=== PATIENT | male | born 1965 | race Two or more races ===

== ENCOUNTER 2017-11-03 06:36 | Inpatient (IN) | payer MEDICARE, MEDICAID ==
[~2017-11-03] VITALS: Ht 172.7 cm; Wt 77.1 kg
--- NOTE | 2017-11-03 08:30 | NUR ---
MS/retrimmer New admission from [place] with diagnose of shortness of breath / pleural effusion. Patient fully admitted, awaiting orders. All needs attended, call light within reach, brakes locked, side rails X3 in upright position.
[2017-11-03] MEDS ORDERED: LISI-603 PO (08:31)
[2017-11-03] MEDS ORDERED: CALC667C6 PO (08:31)
[2017-11-03] MEDS ORDERED: HYDR50TA3 PO (08:31)
[2017-11-03] MEDS ORDERED: MINO10TA2 PO (08:31)
[2017-11-03] MEDS ORDERED: AMLO10TA2 PO (08:31)
[2017-11-03] MEDS ORDERED: ASPI-1152 PO (08:31)
[2017-11-03] MEDS ORDERED: FOLI1TAB16 PO (08:31)
[2017-11-03] MEDS ORDERED: LANT1000 PO (08:31)
[2017-11-03] MEDS ORDERED: IV NS 0.9% 1,000 ML IV PRN (08:44)
[2017-11-03] MEDS ORDERED: MAG HYDROX/AL HYDROX/SIMETH 30 ML UDC PO PRN (09:00)
[2017-11-03] MEDS ORDERED: HYDROCODONE/APAP 5/325MG 1 EACH TABLET PO PRN (09:00)
[2017-11-03] MEDS ORDERED: ONDANSETRON HCL/PF 4 MG/2 ML VIAL IVP PRN (09:00)
[2017-11-03] MEDS ORDERED: ACETAMINOPHEN 325 MG TABLET PO PRN (09:00)
[2017-11-03] MEDS ORDERED: MAGNESIUM HYDROXIDE 30 ML UDC PO PRN (09:00)
[2017-11-03] MEDS ORDERED: ZOLPIDEM TARTRATE 5 MG TABLET PO PRN (09:00)
[2017-11-03] MEDS ORDERED: Z GUARD REMEDY 2 OZ OINT TP PRN (09:00)
--- NOTE | 2017-11-03 09:00 | NUR ---
MS/RN S/B Dr Sheth Seen by Dr Sheth - admitting orders wrote and carried out.
[2017-11-03] MEDS ORDERED: AZITHROMYCIN 500 MG in IV D5W 250 ML IV SCH (09:30)
[2017-11-03 10:14] LABS: BASOPHILS % (AUTO) 0.6 % (0.0-2.0); EOSINOPHILS # (AUTO) 0.1 /CMM (0.0-0.7); EOSINOPHILS % (AUTO) 1.5 % (0.0-6.0); HEMATOCRIT 32 % (39-51); HEMOGLOBIN 10.3 g/dL (13.5-17.5); LYMPHOCYTES # (AUTO) 0.6 /CMM (0.8-4.8); MEAN CORPUSCULAR HEMOGLOBIN 26 PG (26.0-33.0); MEAN CORPUSCULAR HGB CONC 32 g/dl (31.0-36.0); MEAN CORPUSCULAR VOLUME 83 fL (80-96); MONOCYTES # (AUTO) 0.8 /CMM (0.1-1.30); MONOCYTES % (AUTO) 10.1 % (2.0-12.0); NEUTROPHILS # (AUTO) 6.3 /CMM (1.8-8.9); NEUTROPHILS % (AUTO) 79.8 % (43.0-81.0); PLATELET COUNT (AUTO) 438 /CMM (150-450); RDW COEFFICIENT OF VARIATION 15.8 (11.5-15.0); RED BLOOD CELL COUNT(AUTO) 3.88 MIL/uL (4.5-6.0); WHITE BLOOD COUNT (AUTO) 7.9 K/uL (4.3-11.0)
[2017-11-03] MEDS ORDERED: CEFTRIAXONE 1 G in IV D5W 50 ML IV SCH (10:30)
--- NOTE | 2017-11-03 10:30 | NUR ---
MS/RN S/B Dr Dill Seen by Dr Dill - HDX ordered for today and tomorrow. Diet changed to renal standard.
[2017-11-03 10:55] LABS: ALBUMIN 3.2 g/dL (3.4-5.0); BILIRUBIN,TOTAL 0.7 mg/dL (0.2-1.0); CALCIUM, SERUM 9.1 mg/dL (8.5-10.1); CREATININE 6.9 mg/dL (0.6-1.3); POTASSIUM 4.2 mmol/L (3.5-5.1); TOTAL PROTEIN, SERUM 8.1 g/dL (6.4-8.2)
[2017-11-03 12:00] VITALS: BP 127/72
--- NOTE | 2017-11-03 12:00 | NUR ---
MS/RN IVAB IVAB (zithromax and rocephin) administered as ordered. No adverse reaction noted.
--- NOTE | 2017-11-03 14:15 | NUR ---
MS/RN CT Chest Patient off floor at this time for CT scan of chest with contrast.
[2017-11-03] MEDS ORDERED: IV NS 0.9% 250 ML IV ONE (14:45)
[2017-11-03] MEDS ORDERED: IOHEXOL-300 100 ML VIAL IV ONE (14:45)
[2017-11-03 16:00] VITALS: BP 144/84
--- NOTE | 2017-11-03 16:00 | NUR ---
TELE/RN CT SCAN PATIENT BACK FROM CT WITH CONTACT OF CHEST. NO ASE NOTED. IN STABLE CONDITION. RESPIRATION REGULAR AND UNLABORED. DENIES SOB, PAIN AT THIS. WILL CONTINUE TO MONITOR.
--- NOTE | 2017-11-03 16:44 | NUR ---
MS/RN HDX HDX started at bedside, signed consent placed in front of chart.
--- NOTE | 2017-11-03 17:00 | NUR ---
TELE/RN GETTING DIALYSIS THE PATIENT GETTING DIALYSIS. NO ASE NOTED. IN STABLE CONDITION.
--- NOTE | 2017-11-03 17:15 | NUR ---
MS/RN Random vanco level Random vancomycin level ordered, if less than 20, dose to be administered post dialysis.
[2017-11-03] MEDS ORDERED: PIPERACILLIN /TAZOBACTAM 4.5 G in IV D5W 50 ML IV SCH (17:30)
[2017-11-03] MEDS ORDERED: VANCOMYCIN 1 GM in IV D5W 250 ML IV ONE ×4 (18:00)
[2017-11-03] MEDS ORDERED: FEE PK DOSING 1 MIN EA MC ONE (18:16)
--- NOTE | 2017-11-03 18:36 | NUR ---
TELE/RN CLOSING NOTE [place] A/O X3. RESPIRATION REGULAR AND UNLABORED. DENIES SOB, PAIN AT THIS TIME. IN NO APPARENT DISTRESS. POST DIALYSIS AND IS IN STABLE CONDITION. BED LOW AND LOCKED. SIDE RAIL X2 IN UPRIGHT POSITION. CALL LIGHT WITHIN REACH. WILL ENDORSE TO MOTOR BRAKEMAN.
--- NOTE | 2017-11-03 19:00 | NUR ---
RN NOTES IN BED RESTING COMFORTABLY. A/O X 3, PT IN STABLE CONDITION, NO S/S OF DISTRESS. SAFETY MEASURES ARE IN PLACE, CALL LIGHT IS IN REACH. WILL CONTINUE TO MONITOR.
--- NOTE | 2017-11-03 19:03 | NUR ---
MS/CHAIM Perez Awaiting [facility] level.
--- NOTE | 2017-11-03 19:23 | NUR ---
MS RN NOTES CHECKED VANCO LEVEL REPORTED TO THE PHARMACIST RECENT RANDOM VANCO TROUGH CONT TO ADMINISTER ORDERED 1800 MEDS VANCO
[2017-11-03 20:00] VITALS: BP 142/77
[2017-11-03] MEDS: PIPERACILLIN /TAZOBACTAM 2.25 G in IV D5W 50 ML IV SCH (21:19)
[2017-11-04] VITALS: BP 116/59
[2017-11-04 04:00] VITALS: BP 134/75
[2017-11-04] MEDS: PIPERACILLIN /TAZOBACTAM 2.25 G in IV D5W 50 ML IV SCH ×3 (04:38→21:23)
--- NOTE | 2017-11-04 06:24 | NUR ---
FAST FOOD DELIVERY DRIVER CLOSING NOTES PT IN BED ASLEEP AND EASILY AWAKEN, HOB ELEVATED RESPIRATIONS EVEN AND UNLABORED. ON 2LPM VIA NC 02 SAT 98% NOT IN S/S DISTRESS. KEPT CLEAN AND DRY AND COMFORTABLE, ALL NURSING CARE RENDERED. NEEDS ATTENDED AND ANTICIPATED, FREQUENT VISUAL CHECK DONE FOR SAFETY EVERY 2 HOURS. ON LOW BED AT ALL TIMES TO ENSURE SAFETY. SAFE HAZARD FREE ENVIRONMENT PROVIDED. CALL LIGHT WITHIN EASY TO REACH. WILL ENDORSE NEXT SHIFT CONTINUITY OF CARE. ATTACH TO TELE MONITOR. SR, 71'S
--- NOTE | 2017-11-04 07:10 | NUR ---
SPEEDBOAT DRIVER NOTES PATIENT ALERT AND ORIENTED X4, BREATHING EVEN AND UNLABORED, NO DISTRESS NOTED, DENIES PAIN OR DISCOMFORT AT THIS TIME, DISCUSSED PLAN OF CARE FOR TODAY, PATIENT VERBALIZED UNDERSTANDING. NEEDS ATTENDED AND MET, CALL LIGHT WITHIN REACH, WILL CONTINUE TO MONITOR.
[2017-11-04 07:29] LABS: BASOPHILS % (AUTO) 0.4 % (0.0-2.0); EOSINOPHILS # (AUTO) 0.2 /CMM (0.0-0.7); HEMATOCRIT 28 % (39-51); HEMOGLOBIN 9.3 g/dL (13.5-17.5); LYMPHOCYTES # (AUTO) 0.8 /CMM (0.8-4.8); LYMPHOCYTES % (AUTO) 9.9 % (20.0-44.0); MEAN CORPUSCULAR HEMOGLOBIN 27 PG (26.0-33.0); MEAN CORPUSCULAR HGB CONC 33 g/dl (31.0-36.0); MEAN CORPUSCULAR VOLUME 82 fL (80-96); MONOCYTES # (AUTO) 0.8 /CMM (0.1-1.30); MONOCYTES % (AUTO) 9.6 % (2.0-12.0); NEUTROPHILS # (AUTO) 6.4 /CMM (1.8-8.9); NEUTROPHILS % (AUTO) 77.1 % (43.0-81.0); PLATELET COUNT (AUTO) 364 /CMM (150-450); RDW COEFFICIENT OF VARIATION 16.8 (11.5-15.0); RED BLOOD CELL COUNT(AUTO) 3.44 MIL/uL (4.5-6.0); WHITE BLOOD COUNT (AUTO) 8.3 K/uL (4.3-11.0)
[2017-11-04 07:41] LABS: CALCIUM, SERUM 8.7 mg/dL (8.5-10.1); CREATININE 6.1 mg/dL (0.6-1.3); MAGNESIUM 2.5 mg/dL (1.8-2.4); POTASSIUM 4.5 mmol/L (3.5-5.1)
[2017-11-04 08:00] VITALS: BP 135/72
[2017-11-04] MEDS ORDERED: MINOXIDIL (10MG) 10 MG TABLET PO SCH (09:00)
[2017-11-04] MEDS ORDERED: HYDROCHLOROTHIAZIDE 25 MG TABLET PO SCH (09:00)
[2017-11-04] MEDS: ASPIRIN EC 81 MG TABLET.DR PO SCH (09:21)
[2017-11-04] MEDS: CALCIUM ACETATE 667 MG TABLET PO SCH ×3 (09:21→17:09)
[2017-11-04] MEDS: FOLIC ACID 1 MG TABLET PO SCH (09:21)
[2017-11-04] MEDS: AMLODIPINE BESYLATE 10 MG TABLET PO SCH (09:22)
[2017-11-04] MEDS: LISINOPRIL (20MG) 20 MG TABLET PO SCH ×2 (09:24→21:23)
[2017-11-04] MEDS ORDERED: MINOXIDIL (2.5MG) 2.5 MG TABLET PO SCH (09:30)
--- NOTE | 2017-11-04 09:30 | NUR ---
DIGITAL MARKETER NOTES PATIENT STATED HE TAKES HYDROCHLOROTHIAZIDE AND MINOXIDIL AT HS, ORDER CHANGED TO HS. MADE AWARE.
[2017-11-04] MEDS: LANTHANUM CARBONATE 1,000 MG TAB.CHEW PO SCH ×3 (10:09→17:09)
--- NOTE | 2017-11-04 14:00 | NUR ---
FUR JOINER NOTES HEMODIALYSIS TREATMENT STARTED.
[2017-11-04] MEDS ORDERED: VANCOMYCIN 1 GM in IV D5W 250 ML IV ONE (14:30)
[2017-11-04] MEDS ORDERED: EPOETIN ALFA (10,000 UNIT) 10,000 UNIT/ML VIAL IV ONE (15:00)
--- NOTE | 2017-11-04 15:00 | NUR ---
SENIOR NET ARCHITECT NOTES DR. JEAN SHOWED COPIES OF PATIENT'S MENDIETA RECORDS, FOUND IN PATIENT'S CHART. NO NEW ORDER.
[2017-11-04 16:00] VITALS: BP 124/62
[2017-11-04] MEDS: VANCOMYCIN 500 MG in IV D5W 100 ML IV PRN (17:10)
--- NOTE | 2017-11-04 17:22 | NUR ---
C 13 CATAPULT OPERATOR NOTES HD TREATMENT COMPLETED WITH UF OF 2000ML. PATIENT ALERT AND ORIENTED, NO DISTRESS NOTED. VANCO GIVEN POST HD.
[2017-11-04] MEDS: LACTOBACILLUS RHAMNOSUS GG 1 EACH CAP.SPRINK PO SCH (18:01)
--- NOTE | 2017-11-04 18:45 | NUR ---
SYSTEM PLANNING ENGINEER NOTES PATIENT ALERT AND ORIENTED X4, ALBANIAN SPEAKING, BELKYS AT BEDSIDE, PATIENT IS ON O2 AT 2LPM VIA NC WITH O2 SAT OF 100%, BREATHING EVEN AND UNLABORED, NO RESPIRATORY DISTRESS. PATIENT DENIES PAIN OR DISCOMFORT, RECEIVED ALL DUE MEDICATIONS ORDERED, HD COMPLETED, VANCO COMPLETED, ALL NEEDS ATTENDED AND MET, PATIENT AMBULATES TO RESTROOM INDEPENDENTLY, CALL LIGHT WITHIN REACH, WILL ENDORSE TO MMD UNIT TEACHER FOR JEFF.
--- NOTE | 2017-11-04 19:00 | NUR ---
SHUTTLE TRUCK DRIVER NOTES RECEIVE REPORT FROM NIGHT RN FOR CONTINUITY OF CARE. PT NOW IN BED RESTING COMFORTABLY. A/O X 3, PT IN STABLE CONDITION, NO S/S OF DISTRESS. SAFETY MEASURES ARE IN PLACE, CALL LIGHT IS IN REACH. WILL CONTINUE TO MONITOR. Addendum: 11/04/17 at 2043 by ABRAN BERKOWITZ RN CORRECTION TIME: THIS ENTRY CHARTED AT 203911/04/2017
[2017-11-04 20:00] VITALS: BP 176/91
[2017-11-04] MEDS: MINOXIDIL (2.5MG) 2.5 MG TABLET PO SCH (21:24)
[2017-11-04] MEDS: HYDROCHLOROTHIAZIDE 25 MG TABLET PO SCH (21:24)
[2017-11-05] VITALS: BP 137/70
[2017-11-05 04:00] VITALS: BP 143/89
[2017-11-05] MEDS: PIPERACILLIN /TAZOBACTAM 2.25 G in IV D5W 50 ML IV SCH ×3 (04:08→21:16)
--- NOTE | 2017-11-05 06:22 | NUR ---
DERMATOPATHOLOGIST CLOSING NOTES PT ASLEEP AND EASILY AWAKEN, ON 2LPM VIA NC 02 SAT 95 % ATTACH TO TELE MONITOR. HOB ELEVATED. RESPIRATIONS EVEN AND UNLABORED. NOT IN S/S DISTRESS. KEPT CLEAN AND DRY AND COMFORTABLE, ALL NURSING CARE RENDERED. NEEDS ATTENDED AND ANTICIPATED, FREQUENT VISUAL CHECK DONE FOR SAFETY EVERY 2 HOURS. ON LOW BED AT ALL TIMES TO ENSURE SAFETY. SAFE HAZARD FREE ENVIRONMENT PROVIDED. CALL LIGHT WITHIN EASY TO REACH. WILL ENDORSE NEXT SHIFT CONTINUITY OF CARE. NO COMPLAINS OF PAIN AT THIS TIME.
[2017-11-05 07:00] VITALS: BP 148/73
--- NOTE | 2017-11-05 07:15 | NUR ---
SILVER CLEANER NOTES PATIENT ALERT AND ORIENTED X4, BREATHING EVEN AND UNLABORED, ON O2 AT 2LPM VIA NC SATTING WELL, NO ACUTE RESPIRATORY DISTRESS NOTED, DENIES PAIN OR DISCOMFORT, KEPT PT COMFORTABLE, NEEDS ATTENDED, CALL LIGHT WITHIN REACH, WILL CONTINUE TO MONITOR.
[2017-11-05] MEDS: LISINOPRIL (20MG) 20 MG TABLET PO SCH ×2 (08:35→21:17)
[2017-11-05] MEDS: CALCIUM ACETATE 667 MG TABLET PO SCH ×3 (08:35→17:04)
[2017-11-05] MEDS: FOLIC ACID 1 MG TABLET PO SCH (08:36)
[2017-11-05] MEDS: ASPIRIN EC 81 MG TABLET.DR PO SCH (08:36)
[2017-11-05] MEDS: LACTOBACILLUS RHAMNOSUS GG 1 EACH CAP.SPRINK PO SCH ×2 (08:36→17:04)
[2017-11-05] MEDS: LANTHANUM CARBONATE 1,000 MG TAB.CHEW PO SCH ×3 (08:36→17:04)
[2017-11-05] MEDS: AMLODIPINE BESYLATE 10 MG TABLET PO SCH (08:36)
[2017-11-05 16:00] VITALS: BP 134/85
--- NOTE | 2017-11-05 19:00 | NUR ---
RN NOTES IN BED RESTING COMFORTABLY. A/O X 4, PT IN STABLE CONDITION, NO S/S OF DISTRESS. SAFETY MEASURES ARE IN PLACE, CALL LIGHT IS IN REACH. WILL CONTINUE TO MONITOR.
--- NOTE | 2017-11-05 19:06 | NUR ---
RN MS NOTES PATIENT ALERT AND ORIENTED X3, NO RESPIRATORY DISTRESS, DENIES PAIN OR DISCOMFORT AT THIS TIME, ALL NEEDS ATTENDED AND MET, PATIENT INDEPENDENT WITH ADLS. CALL LIGHT WITHIN REACH, WILL ENDORSE TO REACTOR SERVICE OPERATOR FOR JEFF.
[2017-11-05 20:00] VITALS: BP 153/88
[2017-11-05] MEDS: HYDROCHLOROTHIAZIDE 25 MG TABLET PO SCH (21:17)
[2017-11-05] MEDS: MINOXIDIL (2.5MG) 2.5 MG TABLET PO SCH (21:17)
[2017-11-06] MEDS: PIPERACILLIN /TAZOBACTAM 2.25 G in IV D5W 50 ML IV SCH ×3 (04:54→20:55)
--- NOTE | 2017-11-06 06:16 | NUR ---
MS RN CLOSING NOTES HEAD OF BED ELEVATED. IN BED ASLEEP AND EASILY AWAKEN, RESPIRATIONS EVEN AND UNLABORED. TOLERATING ROOM AIR 02 SAT AT 96%. STABLE CONDITION. ALL NURSING CARE RENDERED. NEEDS ATTENDED AND ANTICIPATED, KEPT CLEAN AND DRY AND COMFORTABLE, FREQUENT VISUAL CHECK DONE FOR SAFETY EVERY 2 HOURS. ON LOW BED AT ALL TIMES TO ENSURE SAFETY. SAFE HAZARD FREE ENVIRONMENT PROVIDED. CALL LIGHT WITHIN EASY TO REACH. WILL ENDORSE NEXT SHIFT CONTINUITY OF CARE. NO COMPLAINS OF PAIN AT THIS TIME.
--- NOTE | 2017-11-06 07:45 | NUR ---
RN OPENING NOTES RECEIVED PT. PT IS STABLE AND RESTING ON BEDSIDE CHAIR. A/OX3, ESTONIAN SPEAKING HOWEVER UNDERSTANDS SOME POLISH. NO S/S OF RESPIRATORY DISTRESS OR SOB. NO C/O PAIN AT THIS TIME. IV ACCESS LOCATED ON RIGHT AC 18 G SL. AV FISTULA NOTED ON LEFT ARM. PER MD ORDER, WILL F/U WITH DR. JIMENEZ FOR SURGICAL CONSULT. SAFETY MEASURES IN PLACE, CALL LIGHT WITHIN REACH. WILL CONTINUE TO MONITOR.
[2017-11-06 08:00] VITALS: BP 124/70
[2017-11-06] MEDS: AMLODIPINE BESYLATE 10 MG TABLET PO SCH (09:00)
[2017-11-06] MEDS: LISINOPRIL (20MG) 20 MG TABLET PO SCH ×2 (09:00→20:55)
[2017-11-06] MEDS: LACTOBACILLUS RHAMNOSUS GG 1 EACH CAP.SPRINK PO SCH ×2 (09:05→17:00)
[2017-11-06] MEDS: LANTHANUM CARBONATE 1,000 MG TAB.CHEW PO SCH ×3 (09:06→18:00)
[2017-11-06] MEDS: ASPIRIN EC 81 MG TABLET.DR PO SCH (09:06)
[2017-11-06] MEDS: CALCIUM ACETATE 667 MG TABLET PO SCH ×3 (09:06→18:00)
[2017-11-06] MEDS: FOLIC ACID 1 MG TABLET PO SCH (09:06)
[2017-11-06 16:00] VITALS: BP 151/81
--- NOTE | 2017-11-06 18:55 | NUR ---
RN CLOSING NOTES PT IS AWAKE, RESTING QUIETLY IN BED. A/OX4. NO S/S OF SOB, NO C/O PAIN AT THIS TIME. PT RECEIVED DIALYSIS TODAY WITH 2L OUTPUT. ALL PT NEEDS ANTICIPATED AND MET. BED LOWERED TO LOWEST POSITION, SIDERAILS RAISED X2. SAFETY MEASURES IN PLACE, CALL LIGHT WITHIN REACH. WILL ENDORSE TO ABSEILING INSTRUCTOR FOR JEFF.
--- NOTE | 2017-11-06 19:30 | NUR ---
RN OPENING NOTES PATIENT IS IN BED, ALERT AND ORIENTED X3, NAMIBIAN AND PAKISTANI SPEAKING. VS STABLE. NO C/O PAIN AT THIS TIME. NO SOB NOTED. RESPIRATIONS EVEN AND UNLABORED. IV ACCESS ON RAC SL PATENT AND INTACT, FLUSHING WELL WITH NS, NO REDNESS OR INFILTRATION NOTED. BED IN LOW AND LOCKED POSITION, SIDE RAILSX2, CALL LIGHT WITHIN EASY REACH. WILL CONTINUE TO MONITOR AND ASSESS DURING THE SHIFT.
[2017-11-06 20:00] VITALS: BP 159/86
[2017-11-06] MEDS: MINOXIDIL (2.5MG) 2.5 MG TABLET PO SCH (21:59)
[2017-11-06] MEDS: HYDROCHLOROTHIAZIDE 25 MG TABLET PO SCH (21:59)
[2017-11-07] MEDS: PIPERACILLIN /TAZOBACTAM 2.25 G in IV D5W 50 ML IV SCH ×3 (05:23→21:03)
--- NOTE | 2017-11-07 06:59 | NUR ---
RN CLOSING NOTES PATIENT IS SLEEPING IN BED, EASY TO AROUSE, ALERT AND ORIENTED X3. VS STABLE. NO C/O PAIN AT THIS TIME. NO SOB NOTED. RESPIRATIONS EVEN AND UNLABORED. IV ACCESS ON RAC SL PATENT AND INTACT, NO REDNESS OR INFILTRATION NOTED. ALL NEEDS ARE MET AND MEDICATIONS GIVEN PER MD ORDER. BED IN LOW AND LOCKED POSITION, SIDE RAILSX2, CALL LIGHT WITHIN EASY REACH. WILL ENDORSE TO RN DAY SHIFT FOR JEFF.
--- NOTE | 2017-11-07 07:20 | NUR ---
RN NOTES PT IS RESTING IN BED, NO SIGNS OF DISTRESS NOTED. PT ON RA, RESPIRATIONS ARE EVEN AND UNLABORED. IV ON RAC INTACT AND RUNNING TKO. SAFETY MEASURES ARE IN PLACE, CALL LIGHT IS IN REACH. WILL CONTINUE TO MONITOR.
[2017-11-07] MEDS: LANTHANUM CARBONATE 1,000 MG TAB.CHEW PO SCH ×3 (07:59→17:18)
[2017-11-07 08:00] VITALS: BP 141/71
[2017-11-07] MEDS: LACTOBACILLUS RHAMNOSUS GG 1 EACH CAP.SPRINK PO SCH ×2 (08:00→17:18)
[2017-11-07] MEDS: AMLODIPINE BESYLATE 10 MG TABLET PO SCH (08:00)
[2017-11-07] MEDS: FOLIC ACID 1 MG TABLET PO SCH (08:00)
[2017-11-07] MEDS: CALCIUM ACETATE 667 MG TABLET PO SCH ×3 (08:00→17:18)
[2017-11-07] MEDS: ASPIRIN EC 81 MG TABLET.DR PO SCH (08:01)
[2017-11-07] MEDS: LISINOPRIL (20MG) 20 MG TABLET PO SCH ×2 (08:01→21:03)
[2017-11-07 08:45] LABS: BASOPHILS # (AUTO) 0.1 /CMM (0.0-0.2); BASOPHILS % (AUTO) 1.2 % (0.0-2.0); EOSINOPHILS # (AUTO) 0.3 /CMM (0.0-0.7); EOSINOPHILS % (AUTO) 5.4 % (0.0-6.0); HEMATOCRIT 31 % (39-51); HEMOGLOBIN 9.8 g/dL (13.5-17.5); LYMPHOCYTES # (AUTO) 0.8 /CMM (0.8-4.8); LYMPHOCYTES % (AUTO) 13.2 % (20.0-44.0); MEAN CORPUSCULAR HEMOGLOBIN 26 PG (26.0-33.0); MEAN CORPUSCULAR HGB CONC 32 g/dl (31.0-36.0); MEAN CORPUSCULAR VOLUME 82 fL (80-96); MONOCYTES # (AUTO) 0.7 /CMM (0.1-1.30); MONOCYTES % (AUTO) 11.1 % (2.0-12.0); NEUTROPHILS # (AUTO) 4.3 /CMM (1.8-8.9); NEUTROPHILS % (AUTO) 69.1 % (43.0-81.0); PLATELET COUNT (AUTO) 421 /CMM (150-450); RDW COEFFICIENT OF VARIATION 16.1 (11.5-15.0); RED BLOOD CELL COUNT(AUTO) 3.72 MIL/uL (4.5-6.0); WHITE BLOOD COUNT (AUTO) 6.2 K/uL (4.3-11.0)
[2017-11-07 16:00] VITALS: BP 133/78
[2017-11-07] MEDS ORDERED: VANCOMYCIN 1 GM in IV D5W 250 ML IV ONE (18:00)
--- NOTE | 2017-11-07 18:56 | NUR ---
RN NOTES PT IS SITTING UP IN BED, RESTING COMFORTABLY. PT ON RA, RESPIRATIONS ARE EVEN AND UNLABORED, NO SIGNS OF DISTRESS NOTED. IV ON RAC INTACT AND PATENT. ALL MEDS WERE GIVEN ORDERED AND PT NEEDS MET. CONSENT SIGNED FOR THORACENTESIS SCHEDULED FOR TOMORROW. SAFETY MEASURES ARE IN PLACE, CALL LIGHT IS IN REACH. WILL ENDORSE TO COORDINATE MEASURING MACHINE OPERATOR RN FOR CONTINUITY OF CARE.
--- NOTE | 2017-11-07 19:30 | NUR ---
RN OPENING NOTES PATIENT IS SITTING IN THE CHAIR, ALERT AND ORIENTED X3. VS STABLE. NO C/O PAIN AT THIS TIME. NO SOB NOTED. RESPIRATIONS EVEN AND UNLABORED. IV ACCESS ON RAC SL PATENT AND INTACT, NO REDNESS OR INFILTRATION NOTED. PATIENT IS NPO DUE THE PROCEDURE TOMORROW. BED IN LOW AND LOCKED POSITION, SIDE RAILSX2, CALL LIGHT WITHIN EASY REACH. WILL CONTINUE TO MONITOR AND ASSESS DURING THE SHIFT.
[2017-11-07 20:00] VITALS: BP 167/95
[2017-11-07] MEDS: HYDROCHLOROTHIAZIDE 25 MG TABLET PO SCH (22:05)
[2017-11-07] MEDS: MINOXIDIL (2.5MG) 2.5 MG TABLET PO SCH (22:05)
[2017-11-08] MEDS: PIPERACILLIN /TAZOBACTAM 2.25 G in IV D5W 50 ML IV SCH ×3 (04:49→22:41)
--- NOTE | 2017-11-08 06:58 | NUR ---
RN CLOSING NOTES PATIENT IS SLEEPING IN BED, EASY TO AROUSE, ALERT AND ORIENTED X3. VS STABLE. NO C/O PAIN AT THIS TIME. NO SOB NOTED. RESPIRATIONS EVEN AND UNLABORED. IV ACCESS ON RAC SL PATENT AND INTACT, NO REDNESS OR INFILTRATION NOTED. PATIENT IS NPO DUE THE PROCEDURE. ALL NEEDS ARE MET AND MEDICATIONS GIVEN PER MD ORDER. BED IN LOW AND LOCKED POSITION, SIDE RAILSX2, CALL LIGHT WITHIN EASY REACH. WILL ENDORSE TO RN DAY SHIFT FOR JEFF.
--- NOTE | 2017-11-08 07:10 | NUR ---
RN INITIAL NOTES REPORT RECEIVED AT THE BEDSIDE. PATIENT IS RESTING COMFORTABLY IN BED. NO SOB OR DISTRESS NOTED AT THIS TIME. PATIENT DENIES PAIN. PT UNDERSTANDS THAT HE IS NPO UNTIL AFTER THORACENTESES TODAY. BED IN A LOW POSITION, CALL LIGHT WITHIN PATIENT REACH. WILL CONTINUE TO MONITOR.
[2017-11-08 08:00] VITALS: BP 126/76
[2017-11-08 08:35] LABS: CALCIUM, SERUM 8.9 mg/dL (8.5-10.1); POTASSIUM 5.6 mmol/L (3.5-5.1)
[2017-11-08 08:36] LABS: CREATININE 7.7 mg/dL (0.6-1.3)
[2017-11-08] MEDS: FOLIC ACID 1 MG TABLET PO SCH (08:53)
[2017-11-08] MEDS: LACTOBACILLUS RHAMNOSUS GG 1 EACH CAP.SPRINK PO SCH ×2 (08:53→18:35)
[2017-11-08] MEDS: LANTHANUM CARBONATE 1,000 MG TAB.CHEW PO SCH ×3 (08:53→18:35)
[2017-11-08] MEDS: CALCIUM ACETATE 667 MG TABLET PO SCH ×3 (08:53→18:35)
[2017-11-08] MEDS: ASPIRIN EC 81 MG TABLET.DR PO SCH (08:53)
[2017-11-08] MEDS: AMLODIPINE BESYLATE 10 MG TABLET PO SCH (08:54)
[2017-11-08] MEDS: LISINOPRIL (20MG) 20 MG TABLET PO SCH ×2 (08:55→22:41)
--- NOTE | 2017-11-08 08:55 | NUR ---
HOLDING PT BLOOD PRESSURE MEDS PATIENT IS SCHEDULED FOR DIALYSIS AND THORACENTESIS TODAY.
[2017-11-08 13:42] LABS: INR 1.04 (0.87-1.13); PROTHROMBIN TIME 10.8 SECS (9.5-12.7)
--- NOTE | 2017-11-08 13:51 | NUR ---
WILL HOLD VANCO POST DIALYSIS TODAY PATIENT VANCO RANDOM LEVEL IS 26.
--- NOTE | 2017-11-08 14:30 | NUR ---
CALLED [facility] FROM DIALYSIS TO FIND OUT WHAT TIME THE PATIENT'S DIALYSIS WILL BE. [facility] IS AWARE OF PT PROCEDURE AT 1600 TODAY. STATES THE PATIENT WILL HAVE DIALYSIS AFTER THE PROCEDURE. [facility] STATES TO CONTINUE TO HOLD PT BP MEDS UNLESS ABSOLUTELY NECESSARY.
--- NOTE | 2017-11-08 14:36 | NUR ---
RECEIVED CALL FROM SURGEON. STATES TO CANCEL US GUIDED THORACENTESIS HE IS GOING TO PLACE A PLEURX TODAY AT 4. CALLED US TO ADVISE.
[2017-11-08] MEDS ORDERED: EPOETIN ALFA (10,000 UNIT) 10,000 UNIT/ML VIAL SQ ONE (15:00)
[2017-11-08 16:00] VITALS: BP 154/94
[2017-11-08] MEDS ORDERED: ANESTHESIA TRAY IN PYXIS 1 EA TRAY MC ONE (16:10)
--- NOTE | 2017-11-08 16:20 | NUR ---
PT TAKEN OFF FLOOR FOR SURGERY.
[2017-11-08 18:37] VITALS: BP 110/65
--- NOTE | 2017-11-08 18:38 | NUR ---
PT HAS RETURNED FROM SURGERY. PER MD, PT OK TO EAT. NO SUCTION NEEDED TO PLEURX CATH. CATH IS TO BE HOOKED TO SUCTION AND DRAINED EVERY 3 DAYS. PER REPORT, 1700ML OUT. VITALS CHECKED AND RECORDED. PATIENT DENIES PAIN. WILL MONITOR.
[2017-11-08 19:10] VITALS: BP 118/66
--- NOTE | 2017-11-08 19:44 | NUR ---
RN NOTES HD WILL START NOW
[2017-11-08 20:00] VITALS: BP 130/68
--- NOTE | 2017-11-08 20:00 | NUR ---
RN NOTES RECEIVED PATIENT IN BED, ALERT AND ORIENTED X3, SERBIAN SPEAKING ONLY, CALM, NO SOB, TOLERATING ROOM AIR, SPO2 95%, DENIES ANY PAIN AT THIS TIME, RIGHT AC SALINE LOCK IS PATENT AND SECURED WITH DRESSING, NATHANAEL AV SHUNT WORKING PROPERLY, PATIENT IS RECEIVING HD AT THIS TIME, WITH LEFT CHEST PLEURX CATHETER, SECURED WITH DRESSING, NO BLEEDING. PER ENDORSEMENT NO SUCTION AND WILL BE ATTACHED TO SUCTION SYSTEM Q 3 DAYS, TO BE CONNECTED ON 11/11/17. WILL ADMINISTER EPOGEN AND IV ABX AFTER HD. WILL CONTINUE TO MONITOR.
[2017-11-08 21:02] VITALS: BP 130/68
--- NOTE | 2017-11-08 22:32 | NUR ---
VANCOMYCIN HELD, VANCO TROUGH 26
[2017-11-08] MEDS: VANCOMYCIN 500 MG in IV D5W 100 ML IV PRN (22:33)
--- NOTE | 2017-11-08 22:37 | NUR ---
RN NOTES HD COMPLETED WITH OUTPUT OF 1.8 L, VS 131/77 HR 64
[2017-11-08] MEDS: HYDROCHLOROTHIAZIDE 25 MG TABLET PO SCH (22:41)
[2017-11-09] MEDS: MINOXIDIL (2.5MG) 2.5 MG TABLET PO SCH ×2 (00:17→20:44)
[2017-11-09] MEDS: PIPERACILLIN /TAZOBACTAM 2.25 G in IV D5W 50 ML IV SCH ×3 (05:22→20:43)
--- NOTE | 2017-11-09 06:13 | NUR ---
RN NOTES PATIENT IN BED, ALERT AND AWAKE NO SOB, NO DISTRESS, TOLERATING ROOM AIR, NATHANAEL AV SHUNT HAS NO BLEEDING, GIVEN ALL MEDICATIONS, COMPLIANT WITH TX, NEEDS ATTENDED, CALL LIGHT WITHIN REACH.
--- NOTE | 2017-11-09 07:43 | NUR ---
MS RN: INITIAL NOTE RECEIVED PT A/OX4.SLOVAK SPEAKING. NO DISTRESS NOTED. NO SOB NOTED. ON ROOM AIRE SATING AT 98%. SKIN INTACT.AMBULATES WITH OUT ASSIST. NATHANAEL AV SHUNT DRESSING INTACT. R FA #20 SL. NO IV FLUIDS RUNNING. RESTING COMFORTABLY IN BED. CALL LIGHT WITHIN REACH.
[2017-11-09 08:00] VITALS: BP 129/65
[2017-11-09 08:13] LABS: CALCIUM, SERUM 8.6 mg/dL (8.5-10.1); CREATININE 6.9 mg/dL (0.6-1.3); POTASSIUM 4.9 mmol/L (3.5-5.1)
[2017-11-09] MEDS: ASPIRIN EC 81 MG TABLET.DR PO SCH (08:33)
[2017-11-09] MEDS: LANTHANUM CARBONATE 1,000 MG TAB.CHEW PO SCH ×3 (08:33→17:15)
[2017-11-09] MEDS: LISINOPRIL (20MG) 20 MG TABLET PO SCH ×2 (08:33→20:44)
[2017-11-09] MEDS: FOLIC ACID 1 MG TABLET PO SCH (08:33)
[2017-11-09] MEDS: LACTOBACILLUS RHAMNOSUS GG 1 EACH CAP.SPRINK PO SCH ×2 (08:33→17:15)
[2017-11-09] MEDS: AMLODIPINE BESYLATE 10 MG TABLET PO SCH (08:33)
[2017-11-09] MEDS: CALCIUM ACETATE 667 MG TABLET PO SCH ×3 (08:33→17:15)
[2017-11-09 16:00] VITALS: BP 158/78
--- NOTE | 2017-11-09 18:36 | NUR ---
MS RN: CLOSING NOTE PT TOOK ALL MEDICATIONS ON TIME. NO ADVERSE REACTIONS NOTED. NO PAIN NOTED. NO SOB NOTED. SATING 95% ON ROOM AIR. BRP. AMBULATORY WITH OUT ASSIST. SKIN INTACT OTHER THAN L CHEST TUBE IN LOWER LEFT THORAX. DRESSING INTACT. NO BLEEDING NOTED. L UA AV SHUNT. DRESSING INTACT. R FA #20 SL. SITE CLEAR. NO REDNESS OR BLEEDING NOTED. RESTING COMFORTABLY IN BED. CALL LIGHT WITHIN REACH.
--- NOTE | 2017-11-09 19:43 | NUR ---
Nurse recieving notes: Recieved Mr. Jaffe sitting in a chair at the bedside. Alert and orientated X4. Smiling and speech clear no SOB room air. Dressing left chest wall old drainage and Pleurx tube taped in place.
[2017-11-09 20:04] VITALS: BP 149/79
[2017-11-09 20:11] VITALS: BP 149/79
[2017-11-10] VITALS (14 sets, daily range): BP systolic 66–140; BP diastolic 25–76
[2017-11-10] MEDS: PIPERACILLIN /TAZOBACTAM 2.25 G in IV D5W 50 ML IV SCH ×3 (05:52→21:07)
--- NOTE | 2017-11-10 06:10 | NUR ---
MR. ARIZMENDI SLEPT OFF AND ON THROUGH THE NIGHT. AWAKENNS EASILY WHEN PENELOPEE ENTERS THE ROOM TO CHECK ON HIM. NO SOB THIS 12 HOURS. NO NOTED EDEMA
--- NOTE | 2017-11-10 07:55 | NUR ---
RN MS Initial Notes Received pt sitting up in bed. a/o x4, respirations are even and unlabored, not in any acute distress noted. Senegalese speaking only. Denies any pain at this time. Scheduled for hemodialysis today. Left AV shunt dressing kept intact, positive for bruit and thrill. Will continue to monitor throughout shift. Reminded pt to use call light when assistance is needed, call light left within reach. Bed is kept in locked position.
[2017-11-10] MEDS: CALCIUM ACETATE 667 MG TABLET PO SCH ×3 (08:00→18:00)
[2017-11-10] MEDS: LANTHANUM CARBONATE 1,000 MG TAB.CHEW PO SCH ×3 (08:00→18:00)
[2017-11-10 08:47] LABS: CALCIUM, SERUM 8.7 mg/dL (8.5-10.1); MAGNESIUM 2.8 mg/dL (1.8-2.4); POTASSIUM 5.4 mmol/L (3.5-5.1)
[2017-11-10 08:48] LABS: CREATININE 8.2 mg/dL (0.6-1.3)
[2017-11-10] MEDS: FOLIC ACID 1 MG TABLET PO SCH (09:00)
[2017-11-10] MEDS: ASPIRIN EC 81 MG TABLET.DR PO SCH (09:00)
[2017-11-10] MEDS: LISINOPRIL (20MG) 20 MG TABLET PO SCH ×2 (09:00→20:58)
[2017-11-10] MEDS: LACTOBACILLUS RHAMNOSUS GG 1 EACH CAP.SPRINK PO SCH ×2 (09:00→17:00)
[2017-11-10] MEDS: AMLODIPINE BESYLATE 10 MG TABLET PO SCH (09:00)
[2017-11-10 09:06] LABS: HEMATOCRIT 27 % (39-51); HEMOGLOBIN 8.6 g/dL (13.5-17.5); MEAN CORPUSCULAR HEMOGLOBIN 27 PG (26.0-33.0); MEAN CORPUSCULAR HGB CONC 33 g/dl (31.0-36.0); MEAN CORPUSCULAR VOLUME 82 fL (80-96); PLATELET COUNT (AUTO) 336 /CMM (150-450); RDW COEFFICIENT OF VARIATION 16.3 (11.5-15.0); RED BLOOD CELL COUNT(AUTO) 3.22 MIL/uL (4.5-6.0); WHITE BLOOD COUNT (AUTO) 6.8 K/uL (4.3-11.0)
[2017-11-10] MEDS ORDERED: EPOETIN ALFA (10,000 UNIT) 10,000 UNIT/ML VIAL SQ ONE (10:00)
[2017-11-10 10:09] LABS: LYMPHOCYTES % (MANUAL) 25 % (16-48); NEUTROPHILS % (MANUAL) 75 (42-76)
--- NOTE | 2017-11-10 10:45 | NUR ---
RN MS Notes No administration of PO medications d/t scheduled left thorascoscopy and decortication.
--- NOTE | 2017-11-10 12:27 | NUR ---
RN NOTES PLACED CALL TO PHARMACY SPOKE TO BRANDON, NOTIFIED OF SURGICAL PROCEDURE, PER PHARMACY OKAY TO ADMINISTER AFTER PROCEDURE, WILL CONTINUE TO MONITOR AT THIS TIME PT TO HAVE PROCEDURE AT 1400
--- NOTE | 2017-11-10 14:50 | NUR ---
RN MS NOTES PT P/U BY OR FOR LEFT THOROSCOSOPY AND DECORTATION. CONSENTS SIGNED, TYPE & SCREEN DONE. REMAINS A/O X4, AZERI SPEAKING. RESPIRATIONS ARE EVEN AND UNLABORED UPON DEPARTURE. DENIES ANY PAIN AT THIS TIME. PT LEFT IN STABLE CONDITION.
[2017-11-10] MEDS ORDERED: FENTANYL PF 100MCG/2ML AMPUL ONE ×4 (15:10→18:19)
[2017-11-10] MEDS ORDERED: ATRACURIUM 100MG/10 ML MDV IV ONE (15:11)
[2017-11-10] MEDS ORDERED: MIDAZOLAM HCL 2 MG/2ML VIAL ONE (15:11)
[2017-11-10] MEDS ORDERED: ONDANSETRON HCL/PF 4 MG/2 ML VIAL ONE (17:44)
[2017-11-10] MEDS ORDERED: COLACE 100 MG CAPSULE PO PRN (18:30)
--- NOTE | 2017-11-10 18:35 | NUR ---
RN MS NOTES DUE MEDICATIONS NOT GIVEN D/T PT STILL IN THE OR.
--- NOTE | 2017-11-10 18:49 | NUR ---
RN NOTE PATIENT IN BED REPORT GIVEN BY ARIANNE RUCKER PATIENT HAS CHEST TUBE LEFT SIDE - ON SUCTION , PATIENT STATES PAIN AT THIS TIME POST SURGERY. PATIENT SINUS RHYTHM ON MONITOR NO SOB NOTED MILD COUGH NOTED PATIENT STABLE AT THIS TIME, RN WILL CONTINUE TO MONITOR AND ENDORSE CARE TO PM RN.
--- NOTE | 2017-11-10 19:21 | NUR ---
RN NOTES NOTIFIED BY ACCOUNTANT BUDGET THAT PT WAS TRANSFERRED TO ICU AFTER PROCEDURE, PT'S SON IN ROOM, TOOK ALL MEDS AND BELONGINGS TO ICU AND ASSISTED PT'S SON TO UNIT, REPORT GIVEN TO SCOUT RUCKER FOR CONTINUITY OF CARE Addendum: 11/10/17 at 1949 by BRANDON BHAT RN RN NOTES NOTIFIED NEXT CHAIM BUTTERFIELD OF NEED FOR ADMINISTRATION OF VANCO POST DIALYSIS
[2017-11-10] MEDS: VANCOMYCIN 500 MG in IV D5W 100 ML IV PRN (19:25)
[2017-11-10] MEDS ORDERED: MORPHINE SULFATE INJ 4 MG/ML DISP.SYRIN IV PRN (19:30)
--- NOTE | 2017-11-10 19:30 | NUR ---
SECTION CUTTER INITIAL NOTE RECEIVED REPORT FROM 3W RN GRISEL. RECEIVED PT FROM RAYMOND RUCKER. PT IN BED. S/P LEFT DECORTICATION BY DR KERR. PT IS A/A/O X3. LUNG SOUNDS RIGHT CW DIMINISHED. LEFT CW LOWER ABSENT, LEFT UPPER CHEST WALL DIMINISHED. ON 4L NC BUT INCREASED TO 5L, SATS 91%. PT UNABLE TO TAKE DEEP BREATHS DUE TO PAIN 10/10. BOWEL SOUNDS PRESENT. PT IS OLIGURIC. PULSES PRESENT. RECEIVED PT WITH RIGHT WRIST A-LINE, BUT LINE IS OUT. RIGHT FA IV PATENT AND INTACT. BED IN LOW LOCKED POSITION. CALL LIGHT WITHIN REACH. WILL CONTINUE TO MONITOR.
--- NOTE | 2017-11-10 20:00 | NUR ---
AUTO BODY CUSTOMIZER CALLED [facility] FOR CLARIFICATION OF CHEST TUBE. DR PAIGE NURSE PRACTITIONER. PER ROYAL KEEP LEFT CHEST WALL CHEST TUBE ON CONTINUOUS SUCTION. WILL CONTINUE TO MONITOR.
[2017-11-10 20:20] LABS: HEMATOCRIT 21 % (39-51); HEMOGLOBIN 7.1 g/dL (13.5-17.5); MEAN CORPUSCULAR HEMOGLOBIN 28 PG (26.0-33.0); MEAN CORPUSCULAR HGB CONC 33 g/dl (31.0-36.0); MEAN CORPUSCULAR VOLUME 83 fL (80-96); PLATELET COUNT (AUTO) 284 /CMM (150-450); RED BLOOD CELL COUNT(AUTO) 2.58 MIL/uL (4.5-6.0)
[2017-11-10] MEDS: MINOXIDIL (2.5MG) 2.5 MG TABLET PO SCH (21:12)
[2017-11-10] MEDS: MORPHINE SULFATE INJ 2 MG/ML DISP.SYRIN IV PRN (23:46)
[2017-11-11] VITALS (31 sets, daily range): BP systolic 94–140; BP diastolic 23–49
--- NOTE | 2017-11-11 01:00 | NUR ---
STEWARD/STEWARDESS DINING ROOM PT IN BED. SLEEPING. CHEST TUBE INTACT AND CONNECTED TO CONTINUOUS SUCTION. BED IN LOW LOCKED POSITION. CALL LIGHT WITHIN REACH. WILL CONTINUE TO MONITOR.
[2017-11-11] MEDS: ANCEF 1 G in IV D5W 50 ML IV SCH ×2 (04:16→16:37)
[2017-11-11] MEDS: MORPHINE SULFATE INJ 2 MG/ML DISP.SYRIN IV PRN (04:16)
[2017-11-11] MEDS: PIPERACILLIN /TAZOBACTAM 2.25 G in IV D5W 50 ML IV SCH ×3 (04:32→21:41)
[2017-11-11 05:24] LABS: BASOPHILS % (AUTO) 0.1 % (0.0-2.0); EOSINOPHILS % (AUTO) 0.3 % (0.0-6.0); HEMATOCRIT 21 % (39-51); LYMPHOCYTES # (AUTO) 0.4 /CMM (0.8-4.8); LYMPHOCYTES % (AUTO) 2.7 % (20.0-44.0); MEAN CORPUSCULAR HEMOGLOBIN 27 PG (26.0-33.0); MEAN CORPUSCULAR HGB CONC 33 g/dl (31.0-36.0); MEAN CORPUSCULAR VOLUME 82 fL (80-96); MONOCYTES % (AUTO) 7.3 % (2.0-12.0); NEUTROPHILS % (AUTO) 89.6 % (43.0-81.0); PLATELET COUNT (AUTO) 290 /CMM (150-450); RDW COEFFICIENT OF VARIATION 15.6 (11.5-15.0); RED BLOOD CELL COUNT(AUTO) 2.56 MIL/uL (4.5-6.0); WHITE BLOOD COUNT (AUTO) 13.4 K/uL (4.3-11.0)
[2017-11-11 05:44] LABS: CALCIUM, SERUM 8.2 mg/dL (8.5-10.1); CREATININE 7.2 mg/dL (0.6-1.3); POTASSIUM 5.1 mmol/L (3.5-5.1)
--- NOTE | 2017-11-11 07:36 | NUR ---
BLACK TOP SPREADER MACHINE OPERATOR RECEIVED PATIENT FOR THE PREVIOUS SHIFT. PATIENT IS ALERT X 4. NO DISTRESS. STABLE VITAL SINGS. AFEBRILE. SINUS RHYTHM ON MONITOR. NO AIR LEAK NOTED ON CHEST TUBE. CALL LIGHT AT REACH. AWARE HOW TO USE. WILL CONTINUE TO MONITOR AND PROVIDE CARE.
[2017-11-11] MEDS: AMLODIPINE BESYLATE 10 MG TABLET PO SCH (08:20)
[2017-11-11] MEDS: HEPARIN SODIUM, PORCINE 5000 UNITS/1 ML VIAL SQ SCH ×2 (08:21→21:38)
[2017-11-11] MEDS: LISINOPRIL (20MG) 20 MG TABLET PO SCH ×2 (08:21→21:00)
[2017-11-11] MEDS: CALCIUM ACETATE 667 MG TABLET PO SCH ×3 (08:23→17:32)
[2017-11-11] MEDS: ASPIRIN EC 81 MG TABLET.DR PO SCH (08:23)
[2017-11-11] MEDS: LACTOBACILLUS RHAMNOSUS GG 1 EACH CAP.SPRINK PO SCH ×2 (08:23→16:41)
[2017-11-11] MEDS: FOLIC ACID 1 MG TABLET PO SCH (08:23)
[2017-11-11] MEDS: LANTHANUM CARBONATE 1,000 MG TAB.CHEW PO SCH ×3 (08:24→17:33)
--- NOTE | 2017-11-11 12:34 | NUR ---
SENIOR PLANNING ANALYST TRANSFERRED THE PATIENT TO [facility] LEVEL OF CARE ON STABLE CONDITIONS.
--- NOTE | 2017-11-11 12:34 | NUR ---
TRANSVERSE ABDOMINAL MUSCLE SURGEON NOTE PATIENT RECEIVED FROM ICU L ALERT ,ORIENTED X4 , WITH CHEST TUBE ON LT SIDE TO SUCTION -20 WITH SEROSANGUINEOUS DRAINAGE, ON CONT BLOOD TRANSFUSION ORDERED BED IN LOWEST AND LOCKED POSITION , CALL LIGHT WITHIN REACH , PLAN OF CARE DISCUSSED WITH , VS TAKEN , RT FA HL INTACT NO SOB NOTED WILL CONT TO MONITOR CLOSELY
--- NOTE | 2017-11-11 12:44 | NUR ---
INSPECTOR HAIRSPRING TRUING NOTE PER REPORT DIRECTOR OF HOTEL OPERATIONS BEB CHEST TUBE DRESSING WITH BLEEDING NOTED REINFORCED DRESSING DONE , DR NUÑEZ AWARE . ALSO BLOOD TRANSFUSION 1 UNIT PRBC COMPETED , NO ADVERSE REACTION NOTED, WILL CONT TO MONITOR CLOSELY
--- NOTE | 2017-11-11 14:30 | NUR ---
ROTARY DRILLER HELPER NOTE PT EVAL DONE NOT IN ACUTE DISTRESS, PATIENT STILL IN BED
--- NOTE | 2017-11-11 17:48 | NUR ---
PATTERN DUPLICATOR NOTE DVT PUMPS APPLIED ORDERED WILL F\U
--- NOTE | 2017-11-11 20:00 | NUR ---
RN INITIAL NOTE PATIENT RECEIVED RESTING IN BED, A&OX4 , WITH CHEST TUBE ON LT SIDE TO SUCTION -20 WITH SEROSANGUINEOUS DRAINAGE, NO DISTRESS NOTED, NO SOB,R FA IV H/L. PLAN OF CARE DISCUSSED WITH PT. BED IN LOWEST AND LOCKED POSITION , CALL LIGHT WITHIN REACH, WILL CONT TO MONITOR CLOSELY.
[2017-11-11] MEDS: MINOXIDIL (2.5MG) 2.5 MG TABLET PO SCH (21:51)
[2017-11-12] VITALS: BP_SYST 125; BP_DIAS 49; BP_DIAS 79
[2017-11-12 04:00] VITALS: BP 118/54
[2017-11-12] MEDS: PIPERACILLIN /TAZOBACTAM 2.25 G in IV D5W 50 ML IV SCH ×3 (06:18→21:16)
[2017-11-12 06:34] LABS: BASOPHILS % (AUTO) 0.1 % (0.0-2.0); EOSINOPHILS # (AUTO) 0.1 /CMM (0.0-0.7); EOSINOPHILS % (AUTO) 1.2 % (0.0-6.0); HEMATOCRIT 22 % (39-51); HEMOGLOBIN 7.5 g/dL (13.5-17.5); LYMPHOCYTES # (AUTO) 0.4 /CMM (0.8-4.8); LYMPHOCYTES % (AUTO) 3.4 % (20.0-44.0); MEAN CORPUSCULAR HEMOGLOBIN 28 PG (26.0-33.0); MEAN CORPUSCULAR HGB CONC 35 g/dl (31.0-36.0); MEAN CORPUSCULAR VOLUME 80 fL (80-96); MONOCYTES # (AUTO) 0.8 /CMM (0.1-1.30); MONOCYTES % (AUTO) 7.5 % (2.0-12.0); NEUTROPHILS # (AUTO) 9.9 /CMM (1.8-8.9); NEUTROPHILS % (AUTO) 87.8 % (43.0-81.0); PLATELET COUNT (AUTO) 290 /CMM (150-450); RDW COEFFICIENT OF VARIATION 15.5 (11.5-15.0); WHITE BLOOD COUNT (AUTO) 11.2 K/uL (4.3-11.0)
[2017-11-12 06:55] LABS: CALCIUM, SERUM 8.1 mg/dL (8.5-10.1); POTASSIUM 5.5 mmol/L (3.5-5.1)
[2017-11-12 07:01] LABS: CREATININE 8.9 mg/dL (0.6-1.3)
--- NOTE | 2017-11-12 07:30 | NUR ---
RN NOTES RECEIVED PATIENT IN BED ALERT, AWAKE WITH BREATHING NORMAL, EVEN AND UNLABORED. NO ACUTE DISTRESS NOTED. TELE MONITOR REVEALS SR, HR=82. IV RAC IS PATENT AND INTACT, L CHEST TUBE WITH CONTINUOUS SUCTION . NO SOB NOTED. HD CATH INTACT. KEPT CLEAN, DRY AND COMFORTABLE. ALL NEEDS ATTENDED. SAFETY MEASURE OBSERVED. CALL LIGHT WITH IN REACH. WILL CONT TO MONITOR.
--- NOTE | 2017-11-12 07:45 | NUR ---
RN CLOSING NOTE PT RESTING IN BED, A&OX4 , WITH CHEST TUBE ON LT SIDE TO SUCTION -20 WITH SEROSANGUINEOUS DRAINAGE, NO DISTRESS NOTED, NO SOB,R FA IV H/L. PLAN OF CARE DISCUSSED WITH PT. BED IN LOWEST AND LOCKED POSITION , CALL LIGHT WITHIN REACH, WILL ENDORSE TO AM RN.
[2017-11-12 08:00] VITALS: BP 111/64
[2017-11-12] MEDS: LANTHANUM CARBONATE 1,000 MG TAB.CHEW PO SCH ×3 (08:13→17:34)
[2017-11-12] MEDS: LACTOBACILLUS RHAMNOSUS GG 1 EACH CAP.SPRINK PO SCH ×2 (08:14→17:34)
[2017-11-12] MEDS: ASPIRIN EC 81 MG TABLET.DR PO SCH (08:14)
[2017-11-12] MEDS: CALCIUM ACETATE 667 MG TABLET PO SCH ×3 (08:14→17:34)
[2017-11-12] MEDS: LISINOPRIL (20MG) 20 MG TABLET PO SCH ×2 (08:15→21:00)
[2017-11-12] MEDS: AMLODIPINE BESYLATE 10 MG TABLET PO SCH (08:15)
[2017-11-12] MEDS: FOLIC ACID 1 MG TABLET PO SCH (08:16)
[2017-11-12] MEDS: HEPARIN SODIUM, PORCINE 5000 UNITS/1 ML VIAL SQ SCH ×2 (08:18→21:26)
--- NOTE | 2017-11-12 13:12 | NUR ---
RN NOTES VANCO TROUGH RESULTS 23. VANCO DOSE POST HD TO HOLD PER PHARMACY ANUM.
[2017-11-12 16:00] VITALS: BP 115/57
[2017-11-12 17:43] LABS: HEMOGLOBIN 7.2 g/dL (13.5-17.5)
--- NOTE | 2017-11-12 19:30 | NUR ---
RN NOTES PATIENT IN BED ALERT, AWAKE,ORIENTED X4 WITH BREATHING NORMAL, EVEN AND UNLABORED. NO SOB NOTED. NO ACUTE DISTRESS NOTED. IV IS PATENT AND INTACT, L CHEST TUBE WITH CONTINUOUS SUCTION . NO SOB NOTED. HD CATH INTACT. KEPT CLEAN, DRY AND COMFORTABLE. ALL NEEDS ATTENDED. SAFETY MEASURE OBSERVED. CALL LIGHT WITH IN REACH. WILL CONT TO MONITOR.
[2017-11-12 20:00] VITALS: BP 120/48
[2017-11-12 20:58] VITALS: BP 120/40
[2017-11-12] MEDS: MINOXIDIL (2.5MG) 2.5 MG TABLET PO SCH (21:18)
[2017-11-13] VITALS (21 sets, daily range): BP systolic 108–180; BP diastolic 40–102
[2017-11-13] MEDS: PIPERACILLIN /TAZOBACTAM 2.25 G in IV D5W 50 ML IV SCH ×3 (05:33→20:59)
[2017-11-13 06:50] LABS: CALCIUM, SERUM 7.7 mg/dL (8.5-10.1); POTASSIUM 4.8 mmol/L (3.5-5.1)
[2017-11-13 06:52] LABS: CREATININE 7.5 mg/dL (0.6-1.3)
[2017-11-13 06:54] LABS: BASOPHILS % (AUTO) 0.3 % (0.0-2.0); EOSINOPHILS # (AUTO) 0.3 /CMM (0.0-0.7); EOSINOPHILS % (AUTO) 2.9 % (0.0-6.0); LYMPHOCYTES # (AUTO) 0.8 /CMM (0.8-4.8); LYMPHOCYTES % (AUTO) 8.2 % (20.0-44.0); MEAN CORPUSCULAR HEMOGLOBIN 29 PG (26.0-33.0); MEAN CORPUSCULAR HGB CONC 36 g/dl (31.0-36.0); MEAN CORPUSCULAR VOLUME 81 fL (80-96); MONOCYTES # (AUTO) 0.9 /CMM (0.1-1.30); MONOCYTES % (AUTO) 9.8 % (2.0-12.0); NEUTROPHILS # (AUTO) 7.4 /CMM (1.8-8.9); NEUTROPHILS % (AUTO) 78.8 % (43.0-81.0); PLATELET COUNT (AUTO) 290 /CMM (150-450); RDW COEFFICIENT OF VARIATION 15.9 (11.5-15.0); RED BLOOD CELL COUNT(AUTO) 2.13 MIL/uL (4.5-6.0); WHITE BLOOD COUNT (AUTO) 9.4 K/uL (4.3-11.0)
[2017-11-13 06:56] LABS: HEMATOCRIT 17 % (39-51); HEMOGLOBIN 6.1 g/dL (13.5-17.5)
--- NOTE | 2017-11-13 07:10 | NUR ---
RN NOTES RECEIVED CALL FROM LAB WITH CRITICAL RESULTS GLUCOSE =[id number]. RECHECKED BS=95. PURVI OLMOS MADE AWARE WITH NNO. WILL CONT TO MONITOR.
--- NOTE | 2017-11-13 07:13 | NUR ---
RN NOTES PATIENT ENDORSED TO NEXT SHIFT IN STABLE CONDITION FOR CONTINUITY OF CARE. NO SIGNIFICANT CHANGES NOTED. KEPT CLEAN, DRY AND COMFORTABLE. ALL NEEDS ATTENDED. SAFETY MEASURE OBSERVED. CALL LIGHT WITH IN REACH. WILL CONT TO MONITOR.
--- NOTE | 2017-11-13 07:20 | NUR ---
RN NOTES RELAYED CRITICAL RESULTS TO PURVI OLMOS CORPORATE BOND TRADER WITH ORDER TO TRANSFUSE 1 UNIT PRBC. ORDER NOTED AND CARRIED OUT. WILL CONT TO MONITOR.
[2017-11-13] MEDS: AMLODIPINE BESYLATE 10 MG TABLET PO SCH (08:55)
[2017-11-13] MEDS: LISINOPRIL (20MG) 20 MG TABLET PO SCH ×2 (08:56→21:00)
[2017-11-13] MEDS: HEPARIN SODIUM, PORCINE 5000 UNITS/1 ML VIAL SQ SCH (09:00)
[2017-11-13] MEDS: CALCIUM ACETATE 667 MG TABLET PO SCH ×3 (09:01→16:42)
[2017-11-13] MEDS: LANTHANUM CARBONATE 1,000 MG TAB.CHEW PO SCH ×3 (09:01→16:42)
[2017-11-13] MEDS: FOLIC ACID 1 MG TABLET PO SCH (09:01)
[2017-11-13] MEDS: LACTOBACILLUS RHAMNOSUS GG 1 EACH CAP.SPRINK PO SCH ×2 (09:02→16:42)
[2017-11-13] MEDS: ASPIRIN EC 81 MG TABLET.DR PO SCH (09:02)
--- NOTE | 2017-11-13 09:30 | NUR ---
MS RN NOTES HOLD HEPARIN HEMOGLOBIN IS 6.1. DOCTOR NOTIFIED ALREADY.
--- NOTE | 2017-11-13 09:49 | NUR ---
MS RN NOTES RECEIVED PT ON BED A/OX 4. ON RA TOLERATING WELL NO SIGN OF RESPIRATORY DISTRESS.IV ACCESS INTACT NO SIGN OF INFECTION. HEAD OF BED ELEVATED. SIDE RAILS UP. WILL CONTINUE TO MONITOR PT CLOSELY.
--- NOTE | 2017-11-13 11:31 | NUR ---
MS RN NOTES BLOOD TRANSFUSION STARTED AT 1120. CHECKED PT AND BLOOD TYPE PER PROTOCOL. WILL CONTINUE TO MONITOR PT CLOSELY
[2017-11-13 12:09] LABS: LYMPHOCYTES % (MANUAL) 8 % (16-48); MONOCYTES % (MANUAL) 8 % (0-11.0); NEUTROPHILS % (MANUAL) 84 (42-76)
--- NOTE | 2017-11-13 14:19 | NUR ---
MS RN NOTES PT STARTED 2ND UNIT OF PRBC NO REACTION NOTICED. STAYED WITH THE PT FOR 3OMIN AND CHECKED VITAL SIGNS PER PROTOCOL.
[2017-11-13] MEDS ORDERED: hydrALAZINE HCL 10 MG TABLET PO ONE (15:30)
--- NOTE | 2017-11-13 15:32 | NUR ---
MS RN NOTES PURVI OLMOS NP NOTIFIED THAT PT HAS HIGH BLOOD PRESSURE
--- NOTE | 2017-11-13 18:58 | NUR ---
MS RN NOTES PT STABLE. DUE MEDS GIVEN. PROVIDED COMFORT. WILL ENDORSE TO THE PM NURSE.
--- NOTE | 2017-11-13 19:30 | NUR ---
MS RN OPENING NOTES: PATIENT IN BED, AOX4, SITTING ON CHAIRON ROOM AIR, BREATHING EVEN AND UNLABORED. BREATH SOUNDS CLEAR, DIMINISHED AT BASES. APPEARS CALM AND IN NO DISTRESS, DENIES PAIN OR SOB. NATHANAEL AV FISTULA POSITIVE FOR THRILLS. PIV OVER RFA G 20 INTACT AND PATENT TO FLUSH. PATIENT HAS LEFT CHEST TUBE ATTACHED TO CONTINUOUS SUCTION TO PLEUREVAC, NOTED SEROSANGUINEOUS DRAINAGE IN COLLECTION CHAMBER, AT 800 CC LEVEL. PROVIDED FOR COMFORT AND SAFETY. CALL LIGHT WITHIN REACH. WILL CONT TO MONITOR.
[2017-11-13] MEDS: MINOXIDIL (2.5MG) 2.5 MG TABLET PO SCH (21:02)
--- NOTE | 2017-11-13 23:30 | NUR ---
RN NOTES: PATIENT'S BP DECREASED TO 153/73, HR: 71. ON ROOM AIR, O2 SAT AT 98%. APPEARS CALM AND IN NO DISTRESS.
[2017-11-14] MEDS: PIPERACILLIN /TAZOBACTAM 2.25 G in IV D5W 50 ML IV SCH ×3 (04:55→20:58)
[2017-11-14 06:17] LABS: BASOPHILS % (AUTO) 0.4 % (0.0-2.0); EOSINOPHILS # (AUTO) 0.3 /CMM (0.0-0.7); HEMATOCRIT 23 % (39-51); HEMOGLOBIN 7.7 g/dL (13.5-17.5); LYMPHOCYTES # (AUTO) 0.8 /CMM (0.8-4.8); LYMPHOCYTES % (AUTO) 9.4 % (20.0-44.0); MEAN CORPUSCULAR HEMOGLOBIN 29 PG (26.0-33.0); MEAN CORPUSCULAR HGB CONC 34 g/dl (31.0-36.0); MEAN CORPUSCULAR VOLUME 84 fL (80-96); MONOCYTES % (AUTO) 10.7 % (2.0-12.0); NEUTROPHILS # (AUTO) 6.8 /CMM (1.8-8.9); NEUTROPHILS % (AUTO) 76.5 % (43.0-81.0); PLATELET COUNT (AUTO) 331 /CMM (150-450); RDW COEFFICIENT OF VARIATION 15.6 (11.5-15.0); RED BLOOD CELL COUNT(AUTO) 2.68 MIL/uL (4.5-6.0); WHITE BLOOD COUNT (AUTO) 8.9 K/uL (4.3-11.0)
[2017-11-14 07:00] LABS: BILIRUBIN,TOTAL 0.6 mg/dL (0.2-1.0); CALCIUM, SERUM 7.9 mg/dL (8.5-10.1); MAGNESIUM 2.5 mg/dL (1.8-2.4); PHOSPHORUS 4.2 mg/dL (2.5-4.9); POTASSIUM 5.2 mmol/L (3.5-5.1); TOTAL PROTEIN, SERUM 6.5 g/dL (6.4-8.2)
--- NOTE | 2017-11-14 07:04 | NUR ---
MS RN CLOSING NOTES: PATIENT SITTING ON CHAIR, AOX4, ON ROOM AIR, BREATHING EVEN AND UNLABORED. APPEARS CALM AND IN NO DISTRESS, DENIES PAIN. PIV OVER RFA G 20 INTACT AND PATENT TO FLUSH. CHEST TUBE OVER LEFT LATERAL BACK WITH CLEAN AND INTACT DRESSING, ATTACHED TO PLEUREVAC SYSTEM, ON CONTINUOS SUCTION, TOTAL OUTPUT OF 100 CC SEROSANGUINEOUS DRAINAGE NOTED THROUGH SHIFT. DUE MEDS GIVEN. PROVIDED FOR COMFORT AND SAFETY. WILL ENDORSE TO AM RN FOR JEFF.
[2017-11-14 07:07] LABS: CREATININE 9.1 mg/dL (0.6-1.3)
--- NOTE | 2017-11-14 08:04 | NUR ---
MS/RN OPENING NOTE PATIENT IN BED IN STABLE CONDITION. A/O X 4. NO SIGNS OF ACUTE DISTRESS. NO COMPLAIN OF PAIN OR DISCOMFORT. NOTED WITH CHEST TUBE, S/P THORACENTESIS. CHEST TUBE SITE NOTED WITH CLEAN DRY DRESSING. CHEST TUBE DRAINING WELL. ALL NEEDS ATTENDED TO. CALL LIGHT WITHIN REACH. WILL CONTINUE TO MONITOR TO ENSURE SAFETY.
[2017-11-14] MEDS: LANTHANUM CARBONATE 1,000 MG TAB.CHEW PO SCH ×3 (09:05→17:04)
[2017-11-14] MEDS: FOLIC ACID 1 MG TABLET PO SCH (09:06)
[2017-11-14] MEDS: LACTOBACILLUS RHAMNOSUS GG 1 EACH CAP.SPRINK PO SCH ×2 (09:06→17:04)
[2017-11-14] MEDS: ASPIRIN EC 81 MG TABLET.DR PO SCH (09:06)
[2017-11-14] MEDS: CALCIUM ACETATE 667 MG TABLET PO SCH ×3 (09:06→17:04)
[2017-11-14] MEDS: LISINOPRIL (20MG) 20 MG TABLET PO SCH ×2 (09:06→20:58)
[2017-11-14] MEDS: AMLODIPINE BESYLATE 10 MG TABLET PO SCH (09:06)
[2017-11-14 10:18] VITALS: BP 128/64
--- NOTE | 2017-11-14 14:26 | NUR ---
MS/RN SPOKE WITH DR JEAN SPOKE WITH DR JEAN AND MADE AWARE REGARDING PATIENT SCHEDULE FOR CT SCAN FOR CHEST TODAY AND IS CURRENTLY ON CHEST TUBE WITH CONTINUOUS SUCTIONING. PER DR JEAN OK TO DISCONNECT FROM CHEST TUBE DURING TRANSPORTATION TO RADIOLOGY ROOM AND DURING CT SCAN. PATIENT AWARE.
[2017-11-14 18:34] LABS: HEMOGLOBIN 9.7 g/dL (13.5-17.5)
--- NOTE | 2017-11-14 18:50 | NUR ---
MS/RN CLOSING NOTE PATIENT IN BED IN STABLE CONDITION. A/O X 4. NO SIGNS OF ACUTE DISTRESS. NO COMPLAIN OF PAIN OR DISCOMFORT. HAVING DIALYSIS TREATMENT AT THIS TIME TOLERATING WELL. LEFT SIDE CHEST TUBE SITE DRESSING CLEAN DRY AND INTACT. NOTED WITH 50ML OUTPUT THROUGH SHIFT. ALL NEEDS ATTENDED TO. CALL LIGHT WITHIN REACH. WILL ENDORSE TO NEXT SHIFT FOR CONTINUITY OF CARE.
--- NOTE | 2017-11-14 20:07 | NUR ---
RECIEVED MR ARIZMENDI RECIEVING HIS hd AWAKE AND ALERT GOOD EYE CONTACT. CHEST TUBE WITH SEROSINGIOUS DRAINAGE WATCHING TV HD NURSE STATED SHE WILL TAKE 3LITERS OUT AND THAT HIS B/P IS GOOD RIGHT NOW
[2017-11-14 20:17] VITALS: BP 121/70
[2017-11-14 20:18] VITALS: BP 121/70
[2017-11-14] MEDS: MINOXIDIL (2.5MG) 2.5 MG TABLET PO SCH (21:53)
[2017-11-15] VITALS (7 sets, daily range): BP systolic 102–147; BP diastolic 58–72
[2017-11-15] MEDS: PIPERACILLIN /TAZOBACTAM 2.25 G in IV D5W 50 ML IV SCH ×3 (05:11→22:00)
--- NOTE | 2017-11-15 05:36 | NUR ---
ENDING NOTES;sLEPT MOST OF THE NIGHT CHEST TUBE 10ML OUTPUT. HD THEY TOOK OUT 3 LITERS.REMAINS ALERT AND ORIENTATED X4 AMBULATED TO THE BATHROOM WITH ONE NURSE ASSIST STATES HE HAD A BM
[2017-11-15 07:32] LABS: BASOPHILS % (AUTO) 0.5 % (0.0-2.0); EOSINOPHILS # (AUTO) 0.2 /CMM (0.0-0.7); HEMATOCRIT 23 % (39-51); HEMOGLOBIN 8.1 g/dL (13.5-17.5); LYMPHOCYTES # (AUTO) 0.7 /CMM (0.8-4.8); LYMPHOCYTES % (AUTO) 8.3 % (20.0-44.0); MEAN CORPUSCULAR HEMOGLOBIN 29 PG (26.0-33.0); MEAN CORPUSCULAR HGB CONC 35 g/dl (31.0-36.0); MEAN CORPUSCULAR VOLUME 84 fL (80-96); MONOCYTES # (AUTO) 0.8 /CMM (0.1-1.30); MONOCYTES % (AUTO) 10.4 % (2.0-12.0); NEUTROPHILS # (AUTO) 6.2 /CMM (1.8-8.9); NEUTROPHILS % (AUTO) 77.8 % (43.0-81.0); PLATELET COUNT (AUTO) 375 /CMM (150-450); RDW COEFFICIENT OF VARIATION 15.3 (11.5-15.0); WHITE BLOOD COUNT (AUTO) 7.9 K/uL (4.3-11.0)
[2017-11-15 07:55] LABS: CALCIUM, SERUM 9.1 mg/dL (8.5-10.1); POTASSIUM 5.7 mmol/L (3.5-5.1)
[2017-11-15] MEDS: AMLODIPINE BESYLATE 10 MG TABLET PO SCH (09:00)
[2017-11-15] MEDS: LISINOPRIL (20MG) 20 MG TABLET PO SCH ×2 (09:00→22:01)
[2017-11-15] MEDS: LACTOBACILLUS RHAMNOSUS GG 1 EACH CAP.SPRINK PO SCH ×2 (09:05→17:26)
[2017-11-15] MEDS: CALCIUM ACETATE 667 MG TABLET PO SCH ×3 (09:06→17:26)
[2017-11-15] MEDS: ASPIRIN EC 81 MG TABLET.DR PO SCH (09:06)
[2017-11-15] MEDS: FOLIC ACID 1 MG TABLET PO SCH (09:06)
[2017-11-15] MEDS: LANTHANUM CARBONATE 1,000 MG TAB.CHEW PO SCH ×3 (09:13→17:26)
--- NOTE | 2017-11-15 13:19 | NUR ---
RN OPENING NOTES RECEIVED PT. PT IS STABLE AND RESTING IN BEDSIDE CHAIR. A/OX4, PT IS TURKS AND [place] SPEAKING ONLY. NO S/S OF SOB. PT DENIES PAIN AT THIS TIME. CHEST TUBE NOTED AND UTILIZING 20 MMHG OF SUCTION. LAST HD TOOK PLACE 11/14/17 IN PM WITH 3L OUTPUT. SHUNT LOCATED ON LEFT ARM. IV ACCESS LOCATED ON RIGHT FOREARM 20G SL. SAFETY MEASURES IN PLACE, CALL LIGHT WITHIN REACH. WILL CONTINUE TO MONITOR.
--- NOTE | 2017-11-15 18:30 | NUR ---
RN CLOSING NOTES PT IN BED RESTING. NO S/S OF SOB. PT DENIES ANY PAIN AT THIS TIME. CHEST TUBE OUTPUT TOTAL OF 250 ML FOR AM SHIFT. NEW IV ACCESS INSERTED INTO RIGHT FOREARM, 22G, SL. ALL PT NEEDS ANTICIPATED AND MET. SAFETY MEASURES IN PLACE, CALL LIGHT WITHIN REACH. WILL ENDORSE TO FOURTH GRADE TEACHER FOR JEFF.
[2017-11-15 18:47] LABS: HEMOGLOBIN 9.3 g/dL (13.5-17.5)
--- NOTE | 2017-11-15 20:00 | NUR ---
RN OPENING NOTE RECEIVED PT SEATING IN THE CHAIR. PT IS STABLE AND RESTING IN BEDSIDE CHAIR. A/OX4, SPEAKS [place] ONLY. NO S/S OF SOB. PT DENIES PAIN OR DISCOMFORT AT THIS TIME. CHEST TUBE NOTED AND UTILIZING 20 MMHG OF SUCTION, 1250 ROD. LAST HD TOOK PLACE 11/14/17 IN PM WITH 3L OUTPUT ACCORDING TO NURSE. SHUNT LOCATED ON LEFT ARM, SIGN NO BP ON THE LEFT ARM NOTED. IV ACCESS LOCATED ON RIGHT FOREARM 20G SL. SAFETY MEASURES IN PLACE, CALL LIGHT WITHIN REACH. WILL CONTINUE TO MONITOR PATIENT
[2017-11-15] MEDS: MINOXIDIL (2.5MG) 2.5 MG TABLET PO SCH (22:02)
[2017-11-16 04:00] VITALS: BP 135/65
[2017-11-16] MEDS: PIPERACILLIN /TAZOBACTAM 2.25 G in IV D5W 50 ML IV SCH ×3 (05:23→21:59)
--- NOTE | 2017-11-16 07:05 | NUR ---
RN CLOSING NOTES PT IN BED RESTING. NO S/S OF RESPIRATORY DISTRESS NOTED. PT DENIES ANY PAIN AT THIS TIME. CHEST TUBE OUTPUT TOTAL OF 75ML FOR PM SHIFT. IV SITE IS INTACT. ALL PT NEEDS ANTICIPATED AND MET. SAFETY MEASURES IN PLACE, CALL LIGHT WITHIN REACH. WILL ENDORSE TO MORNING SHIFT FOR JEFF
--- NOTE | 2017-11-16 07:30 | NUR ---
VEGETABLE HANDLER INITIAL NOTES RECEIVED PATIENT IN BED, NO SIGNS OF DISTRESS AOX3, ROOM AIR, NO SHORTNESS OF BREATH, CHEST TUBE IN PLACE SUCTIONING TO TUBES PRESENT, IV R FA 22 SL, AV SHUNT ON THE LEFT ARM POSITIVE FOR THRILL AND BRUIT, PATIENT IS AMBULATORY, BED IN LOW AND LOCKED POSITION, CALL LIGHT WITHIN REACH, WILL CONTINUE TO MONITOR.
[2017-11-16 07:35] LABS: BASOPHILS # (AUTO) 0.1 /CMM (0.0-0.2); EOSINOPHILS # (AUTO) 0.4 /CMM (0.0-0.7); EOSINOPHILS % (AUTO) 5.3 % (0.0-6.0); HEMATOCRIT 24 % (39-51); HEMOGLOBIN 8.2 g/dL (13.5-17.5); LYMPHOCYTES # (AUTO) 0.7 /CMM (0.8-4.8); LYMPHOCYTES % (AUTO) 8.9 % (20.0-44.0); MEAN CORPUSCULAR HEMOGLOBIN 29 PG (26.0-33.0); MEAN CORPUSCULAR HGB CONC 34 g/dl (31.0-36.0); MEAN CORPUSCULAR VOLUME 85 fL (80-96); MONOCYTES # (AUTO) 0.9 /CMM (0.1-1.30); MONOCYTES % (AUTO) 10.3 % (2.0-12.0); NEUTROPHILS # (AUTO) 6.2 /CMM (1.8-8.9); NEUTROPHILS % (AUTO) 74.5 % (43.0-81.0); PLATELET COUNT (AUTO) 416 /CMM (150-450); RDW COEFFICIENT OF VARIATION 16.9 (11.5-15.0); RED BLOOD CELL COUNT(AUTO) 2.85 MIL/uL (4.5-6.0); WHITE BLOOD COUNT (AUTO) 8.3 K/uL (4.3-11.0)
[2017-11-16 07:50] LABS: ALBUMIN 2.2 g/dL (3.4-5.0); BILIRUBIN,TOTAL 0.5 mg/dL (0.2-1.0); CALCIUM, SERUM 8.4 mg/dL (8.5-10.1); MAGNESIUM 2.8 mg/dL (1.8-2.4); PHOSPHORUS 4.8 mg/dL (2.5-4.9)
[2017-11-16 08:00] VITALS: BP 132/58
[2017-11-16 08:35] LABS: POTASSIUM 6.4 mmol/L (3.5-5.1)
[2017-11-16] MEDS: LANTHANUM CARBONATE 1,000 MG TAB.CHEW PO SCH ×3 (09:13→17:57)
[2017-11-16] MEDS: CALCIUM ACETATE 667 MG TABLET PO SCH ×3 (09:14→17:57)
[2017-11-16] MEDS: LISINOPRIL (20MG) 20 MG TABLET PO SCH ×2 (09:14→21:58)
[2017-11-16] MEDS: ASPIRIN EC 81 MG TABLET.DR PO SCH (09:14)
[2017-11-16] MEDS: FOLIC ACID 1 MG TABLET PO SCH (09:14)
[2017-11-16] MEDS: AMLODIPINE BESYLATE 10 MG TABLET PO SCH (09:14)
[2017-11-16] MEDS: LACTOBACILLUS RHAMNOSUS GG 1 EACH CAP.SPRINK PO SCH ×2 (09:15→17:57)
--- NOTE | 2017-11-16 11:12 | NUR ---
FLIGHT CONTROL TOWER OPERATOR NOTES PATIENT STARTING DIALYSIS AT THIS TIME. NO SIGNS OF DISTRESS.
[2017-11-16 12:00] VITALS: BP 134/71
--- NOTE | 2017-11-16 13:15 | NUR ---
PICKLING DRUM OPERATOR PATIENT COMPLETED HD 4L OUTPUT NO DISTRESS VITALS STABLE
[2017-11-16 16:00] VITALS: BP_SYST 104; BP_SYST 120; BP_DIAS 56; BP_DIAS 71
--- NOTE | 2017-11-16 18:47 | NUR ---
PRE PRESS MANAGER END NOTES PATIENT SITTING IN CHAIR, ALL NEEDS ATTENDED TO, NO SIGNS OF DISTRESS, ALL NEEDS MET WILL ENDORSE TO DIPPER AND DRIER FOR CONTINUITY OF PAIN
[2017-11-16 20:00] VITALS: BP 132/74
--- NOTE | 2017-11-16 20:00 | NUR ---
RN OPENING NOTE RECEIVED PT IN THE CHAIR. PT IS STABLE AND TALKING ON A PHONE IN BEDSIDE CHAIR. A/OX4, SPEAKS [place] AND SOME CITIZ[place] OF [place]. NO S/S OF SOB NOTED. PT DENIES PAIN OR DISCOMFORT AT THIS TIME. CHEST TUBE NOTED AND UTILIZING 20 MMHG OF SUCTION, 1250 ROD. LAST HD TOOK PLACE TODAY WITH 4L OUTPUT ACCORDING TO NURSE. SHUNT LOCATED ON LEFT ARM, SIGN NO BP ON THE LEFT ARM NOTED. IV ACCESS LOCATED ON RIGHT FOREARM 20G SL. SAFETY MEASURES IN PLACE, CALL LIGHT WITHIN REACH, BED IN THE LOW POSITION, EDUCATE PATIENT TO USE CALL LIGHT WHEN NEED TO USE A BATHROOM WILL CONTINUE TO MONITOR PATIENT
[2017-11-16] MEDS: MINOXIDIL (2.5MG) 2.5 MG TABLET PO SCH (21:58)
[2017-11-17 04:00] VITALS: BP 111/59
[2017-11-17] MEDS: PIPERACILLIN /TAZOBACTAM 2.25 G in IV D5W 50 ML IV SCH ×3 (06:00→22:02)
[2017-11-17 06:50] LABS: BASOPHILS # (AUTO) 0.1 /CMM (0.0-0.2); BASOPHILS % (AUTO) 0.7 % (0.0-2.0); EOSINOPHILS # (AUTO) 0.4 /CMM (0.0-0.7); EOSINOPHILS % (AUTO) 4.7 % (0.0-6.0); HEMATOCRIT 26 % (39-51); HEMOGLOBIN 8.6 g/dL (13.5-17.5); LYMPHOCYTES # (AUTO) 0.6 /CMM (0.8-4.8); LYMPHOCYTES % (AUTO) 7.7 % (20.0-44.0); MEAN CORPUSCULAR HEMOGLOBIN 29 PG (26.0-33.0); MEAN CORPUSCULAR HGB CONC 34 g/dl (31.0-36.0); MEAN CORPUSCULAR VOLUME 85 fL (80-96); MONOCYTES # (AUTO) 0.9 /CMM (0.1-1.30); MONOCYTES % (AUTO) 11.2 % (2.0-12.0); NEUTROPHILS # (AUTO) 5.8 /CMM (1.8-8.9); NEUTROPHILS % (AUTO) 75.7 % (43.0-81.0); PLATELET COUNT (AUTO) 454 /CMM (150-450); RDW COEFFICIENT OF VARIATION 15.9 (11.5-15.0); RED BLOOD CELL COUNT(AUTO) 3.01 MIL/uL (4.5-6.0); WHITE BLOOD COUNT (AUTO) 7.8 K/uL (4.3-11.0)
[2017-11-17 07:12] LABS: POTASSIUM 5.6 mmol/L (3.5-5.1)
--- NOTE | 2017-11-17 07:23 | NUR ---
RN CLOSING NOTES PT IN BED AWAKE. NO S/S OF RESPIRATORY DISTRESS NOTED. PT DENIES ANY PAIN AT THIS TIME., ANURIC IV SITE IS INTACT, CHEST TUBE TO WATER SEAL. ALL PT NEEDS ANTICIPATED AND MET. SAFETY MEASURES IN PLACE, CALL LIGHT WITHIN REACH. WILL ENDORSE TO MORNING SHIFT FOR JEFF
[2017-11-17 08:00] VITALS: BP 123/59
[2017-11-17] MEDS: CALCIUM ACETATE 667 MG TABLET PO SCH ×3 (08:44→17:41)
[2017-11-17] MEDS: LANTHANUM CARBONATE 1,000 MG TAB.CHEW PO SCH ×3 (08:45→17:41)
[2017-11-17] MEDS: ASPIRIN EC 81 MG TABLET.DR PO SCH (09:39)
[2017-11-17] MEDS: LISINOPRIL (20MG) 20 MG TABLET PO SCH ×2 (09:40→22:03)
[2017-11-17] MEDS: FOLIC ACID 1 MG TABLET PO SCH (09:40)
[2017-11-17] MEDS: LACTOBACILLUS RHAMNOSUS GG 1 EACH CAP.SPRINK PO SCH ×2 (09:40→17:41)
[2017-11-17] MEDS: AMLODIPINE BESYLATE 10 MG TABLET PO SCH (09:40)
[2017-11-17 16:00] VITALS: BP 133/48
--- NOTE | 2017-11-17 19:30 | NUR ---
MS RN OPENING NOTES: PATIENT IN BED, AOX4, ON ROOM AIR, BREATHING EVEN AND UNLABORED. APPEARS CALM AND IN NO DISTRESS. DENIES PAIN AT THIS TIME. PATIENT HAS CLEAN AND INTACT DRESSING OVER LEFT SIDE OF BACK/ LATERAL THORAX. PIV OVER RFA G 22 INTACT AND PATENT TO FLUSH. PROVIDED FOR COMFORT AND SAFETY. BED IN LOWEST AND LOCKED POSITION. CALL LIGHT WITHIN REACH. WILL CONT TO MONITOR.
[2017-11-17 20:00] VITALS: BP 127/46
[2017-11-17] MEDS: MINOXIDIL (2.5MG) 2.5 MG TABLET PO SCH (22:00)
--- NOTE | 2017-11-17 22:00 | NUR ---
RN NOTES: PATIENT'S BP DECREASED TO 105/45 AT THIS TIME. DID NOT ADMINISTER MINOXIDIL PO.
--- NOTE | 2017-11-18 06:42 | NUR ---
MS RN CLOSING NOTES: PATIENT IN BED, AOX4, ON ROOM AIR, BREATHING EVEN AND UNLABORED. APPEARS CALM AND IN NO DISTRESS. DENIES PAIN. PIV OVER RFA G 22 INTACT AND PATENT TO FLUSH. NATHANAEL AV SHUNT POSITIVE FOR THRILLS. DUE MEDS GIVEN. PROVIDED FOR COMFORT AND SAFETY. BED IN LOWEST AND LOCKED POSITION, SIDERAILS UP X3. CALL LIGHT WITHIN REACH. WILL ENDORSE TO AM RN FOR JEFF.
[2017-11-18 08:00] VITALS: BP 109/33
[2017-11-18] MEDS: CALCIUM ACETATE 667 MG TABLET PO SCH ×3 (08:00→17:26)
[2017-11-18 09:11] LABS: CALCIUM, SERUM 8.7 mg/dL (8.5-10.1); POTASSIUM 5.9 mmol/L (3.5-5.1)
[2017-11-18 09:41] LABS: CREATININE 10.5 mg/dL (0.6-1.3)
[2017-11-18] MEDS: LANTHANUM CARBONATE 1,000 MG TAB.CHEW PO SCH ×3 (09:42→17:26)
[2017-11-18] MEDS: LISINOPRIL (20MG) 20 MG TABLET PO SCH (09:42)
[2017-11-18] MEDS: FOLIC ACID 1 MG TABLET PO SCH (09:43)
[2017-11-18] MEDS: AMLODIPINE BESYLATE 10 MG TABLET PO SCH (09:43)
[2017-11-18] MEDS: LACTOBACILLUS RHAMNOSUS GG 1 EACH CAP.SPRINK PO SCH ×2 (09:44→17:26)
[2017-11-18] MEDS: ASPIRIN EC 81 MG TABLET.DR PO SCH (09:44)
[2017-11-18 10:00] VITALS: BP 136/67
--- NOTE | 2017-11-18 19:05 | NUR ---
MS RN OPENING NOTES RECEIVED PT FROM DAYSHIFT NURSE IN STABLE CONDITION. PT IS TO BE D/C HOME. WILL COMPLETE EXIT CARE AND CARRY OUT DISCHARGE.
== END 2017-11-18 20:27 | disposition home or self-care (01) | DRG 163 ==
LOC: MED 08:02 → TELE 08:23 → MED 11-05 10:00 → ICU 11-10 18:47 → TELE1 11-11 11:38 → MEDSG1 11-12 10:12
PROVIDERS: ADMIT Internal Medicine; ATTEND Internal Medicine
PROC: 0WH933Z Insertion of Infusion Device into Right Pleural Cavity, Percutaneous Approach (ICD-10-PCS; 2017-11-08)
PROC: 0BCG0ZZ Extirpation of Matter from Left Upper Lung Lobe, Open Approach (ICD-10-PCS; 2017-11-10)
PROC: 0BCJ0ZZ Extirpation of Matter from Left Lower Lung Lobe, Open Approach (ICD-10-PCS; principal; 2017-11-10 15:00)
PROC: 30233N1 Transfusion of Nonautologous Red Blood Cells into Peripheral Vein, Percutaneous Approach (ICD-10-PCS; 2017-11-11)
PROC: 5A1D70Z Performance of Urinary Filtration, Intermittent, Less than 6 Hours Per Day (ICD-10-PCS; 2017-11-18)
DX: J15.6 Pneumonia due to other Gram-negative bacteria (principal); J96.01 Acute respiratory failure with hypoxia; J86.9 Pyothorax without fistula; N18.6 End stage renal disease; J90 Pleural effusion, not elsewhere classified; I12.0 Hypertensive chronic kidney disease with stage 5 chronic kidney disease or end stage renal disease; E87.0 Hyperosmolality and hypernatremia; Z99.2 Dependence on renal dialysis; E11.22 Type 2 diabetes mellitus with diabetic chronic kidney disease; D63.8 Anemia in other chronic diseases classified elsewhere; E87.5 Hyperkalemia; Z79.82 Long term (current) use of aspirin; M85.9 Disorder of bone density and structure, unspecified
CPT/HCPCS: 36415; 36600; 71010-TC; 71045; 71250-TC; 71260-TC; 80048-TC; 80053-TC; 80061-TC; 80202-TC; 82803-TC; 82962-TC; 83615-TC; 83735-TC; 84100-TC; 85025-TC; 85027-TC; 85610-TC; 85730-TC; 86850-TC; 86921-TC; 87070-TC; 87075-TC; 87081-TC; 87102-TC; 87116; 87206; 88305-TC; 88312-TC; 89051-TC; 90935-TC; 93307-TC; A4606; A6253; A6402; C1751; J0456; J0690; J0696; J0885; J1644; J2250; J2270; J2405; J2543; J2704; J3010; J3370; J3490; J7030; J7040; J7050; J7060; L3908; P9016-BL; Q9967; Z7610